=== PATIENT | female | born 1960 | race African-American/Black ===

== ENCOUNTER 2016-08-06 09:50 | Emergency (ER) | payer BC ==
--- NOTE | 2016-08-06 09:59 | PDOC ---
History of Present Illness - General Chief Complaint: Pain Stated Complaint: INTERMITTENT LEFT ARM PAIN Time Seen by Provider: 08/06/16 09:57 - History of Present Illness Initial Comments: 08/06/16 10:39 Chief complaint: Left arm pain History of present illness: Patient began having intermittent episodes of left arm pain last night. The pain began in her shoulder and radiated to the wrist, primarily the dorsal aspect of the arm. There was associated numbness and a" heavy" feeling. It was unrelated to exertion. She took aspirin last night when the pain began. Review of systems: There was no chest pain, shortness of breath, abdominal pain , nausea, vomiting, diaphoresis, lightheadedness or dizziness, visual or focal neurologic symptoms, or unsteadiness of gait. There were no symptoms related to the other extremities. Patient does usual house work but no vigorous work. She does admit that she has had pain in the left posterior neck muscles for about one week, with some mild neck stiffness. No melena, bloody stool, or hematemesis. Past medical history: High blood pressure, elevated cholesterol, both controlled on medication. GERD. Cholecystectomy. Denies prior coronary artery disease, angina, or chest pain Social history: No tobacco alcohol or nonprescription drugs. Fully active and without disability. No exercise intolerance. No heavy labor Family history: Father in his 60s of an [place]. No other cardiac or other diseases known in her immediate family Physical exam: Alert and oriented 3, well-developed well-nourished, no acute distress, cheerful and cooperative. No pain at present. Afebrile, vital signs normal PERRLA, fundi benign, ENT clear Neck supple without bruit mass or nodes. No point tenderness of the vertebral bodies. Mild tenderness over the left lateral neck muscles with stiffness upon movement, but no restriction of movement Lungs clear to P&A with full breath sounds throughout bilaterally CV S1 and S2 normal without murmur or gallop pulses full and symmetric no JVD or edema Abdomen soft nontender without mass or organomegaly Neurological C2 to 12 intact. Strength full and symmetric. No focal sensory or motor deficits. Gait stable and unimpaired. There is no demonstrable motor or sensory deficit in the left arm. Extremities no CCE Skin clear, no rash, adequate turgor and what mucous membranes Impression: Probable radicular pain left arm from mild cervical arthritis or cervical strain. Risk factors for coronary artery disease, but symptoms are not suggestive of cardiac involvement Plan: EKG and enzymes, CBC and chemistries, observation and further treatment depending on results. Past History - Past Medical History Allergies/Adverse Reactions: Allergies Allergy/AdvReac Type Severity Reaction Status Date / Time No Known Allergies Allergy Verified 08/06/16 09:55 Home Medications: Ambulatory Orders Lisinopril [Prinivil -] 10 mg PO DAILY 03/04/13 Aspirin [ASA -] 162 mg PO ONCE 08/06/16 Atorvastatin Ca [Lipitor] 10 mg PO HS 08/06/16 Cholecalciferol (Vitamin D3) [Vitamin D3 -] 1,000 unit PO DAILY 08/06/16 [place]-3/Dha/Epa/Fish Oil [Fish Oil 500 mg Softgel] 1 each PO DAILY 08/06/16 HTN: Yes Hypercholesterolemia: Yes - Surgical History Cholecystectomy: Yes - Psycho/Social/Smoking Cessation Hx Anxiety: No Suicidal Ideation: No Smoking Status: No Smoking History: Never smoked Number of Cigarettes Smoked Daily: 0 Hx Alcohol Use: No Substance Use Type: None ED Treatment Course - LABORATORY CBC & Chemistry Diagram: 08/06/16 10:15 08/06/16 10:15 Medical Decision Making - Medical Decision Making 08/06/16 10:14 EKG reviewed: Normal sinus rhythm 65/m. Normal axes and intervals. No ST-T wave changes. Normal EKG 08/06/16 11:33 Except for a mildly depressed white count, laboratories are without significant abnormalities. Cardiac enzymes are negative No recurrence of pain. Patient comfortable. Soft collar applied, heat, and anti- inflammatory medication recommended Discussed cardiac symptoms with the patient and her . To return to ER if further symptoms develop, otherwise follow-up with primary physician, orthopedist, and consider physical therapy if symptoms persist. Fully ambulatory and without significant pain or other discomfort at discharge to follow-up as directed *DC/Admit/Observation/Transfer Diagnosis at time of Disposition: Cervical radiculopathy - Discharge Dispostion Disposition: HOME Condition at time of disposition: Stable Admit: No - Referrals Referrals: Cely Wilson [Primary Care Provider] - 2 Days - Patient Instructions Printed Discharge Instructions: DI for Cervical Radiculopathy Additional Instructions: Your arm pain is most likely a result of an inadvertent neck strain or mild neck arthritis. There is no evidence in your EKG or laboratory work that this is heart related. However, if your symptoms worsen or other symptoms develop such as chest pain, shortness of breath, nausea, perspiring, dizziness, or lightheadedness, he should return to the hospital for further evaluation. Otherwise see your primary physician for further treatment. If this is a spine related problem and your symptoms persist, you should consider further evaluation by an orthopedist and possible physical therapy - Post Discharge Activity Work/School Note: Back to Work
[2016-08-06 10:06] VITALS: BP 169/86; PULSE 74; TEMP 98.1; BMI 31.2
[2016-08-06 10:12] LABS: URINE APPEARANCE Clear; URINE BILIRUBIN Negative (NEGATIVE); URINE GLUCOSE (UA) Negative (NEGATIVE); URINE KETONE Negative (NEGATIVE); URINE LEUK ESTERASE Trace (NEGATIVE); URINE NITRITE Negative (NEGATIVE); URINE PROTEIN Negative (NEGATIVE); URINE UROBILINOGEN 0.2 E.U/dl (0.2-1.0)
[2016-08-06 10:16] LABS: URINE COLOR YELLOW
[2016-08-06 10:32] LABS: BASOPHIL 1.3 % (0-2.0); EOSINOPHIL 3.1 % (0-4.5); MCH 22.8 pg (25.7-33.7); MCHC 32.5 g/dl (32.0-36.0); MEAN CELL VOLUME 70.2 fl (80-96); MEAN PLT VOLUME 9.1 fl (7.5-11.1); NEUTROPHILS 43.1 % (42.8-82.8); PLATELET COUNT 296 K/MM3 (134-434); RDW 13.9 % (11.6-15.6); WHITE BLOOD COUNT 3.3 K/mm3 (4.0-10.0)
[2016-08-06 10:42] LABS: ALK PHOS 81 U/L (32-92); ANION GAP 6 (8-16); BILIRUBIN,TOTAL 0.4 mg/dl (0.2-1.0); CALCIUM 9.4 mg/dl (8.4-10.2); CO2 30 mmol/L (22-28); CPK(DFH) 101 IU/L (26-140); CREATININE 0.9 mg/dl (0.6-1.3); GLUCOSE,RANDOM 79 mg/dl (74-106); SGOT/AST 21 U/L (10-42); SGPT/ALT 14 U/L (10-40); TOT PROT 7.6 g/dl (6.4-8.3)
[2016-08-06 10:43] LABS: URINE BLOOD 1+ (NEGATIVE)
[2016-08-06 10:55] LABS: TROPONIN I (DFP) < 0.03 ng/ml (0.03-0.50)
[2016-08-06 14:30] LABS: HYPOCHROMIA 1+; MICROCYTOSIS 1+
--- NOTE | 2016-08-06 18:12 | EKG ---
Test Reason : Blood Pressure : / mmHG Vent. Rate : 065 BPM Atrial Rate : 065 BPM P-R Int : 194 ms QRS Dur : 086 ms QT Int : 400 ms P-R-T Axes : 061 023 038 degrees QTc Int : 416 ms NORMAL SINUS RHYTHM NORMAL ECG NO PREVIOUS ECGS AVAILABLE Confirmed by KURTIS GILBERT MD ([id number]) on 08/06/2016 6:11:44 PM Referred By: DEVON GILMORE Confirmed By:KURTIS GILBERT MD
== END 2016-08-06 11:48 | disposition home or self-care (01) ==
LOC: FER 09:50
DX: M54.12 Radiculopathy, cervical region (principal); I10 Essential (primary) hypertension; E78.00 Pure hypercholesterolemia, unspecified
CPT/HCPCS: 36415; 80053; 81003; 82550; 84484; 85025; 87086; 93005; 99284-25

== ENCOUNTER 2017-07-14 02:52 | Emergency (ER) | payer BC ==
[2017-07-14 03:03] VITALS: BP 188/98; PULSE 66; TEMP 98.1; BMI 31.2
--- NOTE | 2017-07-14 03:22 | PDOC ---
History of Present Illness - General Chief Complaint: Palpitations Stated Complaint: CHEST POUNDING Time Seen by Provider: 07/14/17 03:17 History Source: Patient Exam Limitations: No Limitations - History of Present Illness Initial Comments: 07/14/17 03:24 This is a 56-year-old female with history of hypertension and high cholesterol comes in complaining of chest palpitations. Patient said that she is woken out of her sleep several times this evening with the palpitations. Patient denies any chest pain. Any nausea, paresis, radiation or any other associated symptoms. Patient has a family history of heart disease in the father who of heart disease otherwise patient said she's never been told that she has heart disease or problem with her heart. PAST MEDICAL HISTORY: no significant history PAST SURGICAL HISTORY: no significant history FAMILY HISTORY: no pertinant history SOCIAL HISTORY: Pt lives with family and is employed. MEDICATIONS: reviewed ALLERGIES: As per nursing notes Review of Systems General: No fevers or chills, no weakness, no weight loss HEENT: No change in vision. No sore throat,. No ear pain CardioVascular: No chest pain or shortness of breath, +palpitations Respiratory:No cough, or wheezing. Gastrointestinal: no nausea, vomitting, diarrhea or constipation, No rectal bleeding Genitourinary: No dysuria, hematuria, or frequency Musculoskeletal: No joint or muscle pain or swelling Neurologic: No headache, vertigo, dizziness or loss of consciousness Psychiatric: nor depression Skin: No rashes or easy bruising Endocrine: no increased thirst or abnormal weight change Allergic: no skin or latex allergy All other systems reviewed and normal Exam: General: Well-nourished well-developed individual, no acute distress HEENT: Throat: Normal, tonsils normal, no erythema or exudate Neck: Supple, no meningeal signs, no lymphadenopathy Eyes::Pupils equal reactive and round, extraocular motion intact Chest: Nontender to palpation Cardiac: S1-S2 normal, regular rate and rhythm, no murmurs rubs or gallops Respiratory: Lungs clear to auscultation bilateral Abdomen: Soft, nondistended, normal bowel sounds, nontender to palpation diffusely Extremities: Warm, dry, no cyanosis, clubbing, or edema Skin: No rashes Neuro: Alert and oriented x3, CN II - XII intact, nonfocal exam with normal strength, normal sensation, normal reflexes, normal gait, Psych: Normal mood and affect Medical decision making: This is a 56-year-old female with palpitations and some cardiac risk factors who comes in for evaluation. Will obtain workup including CBC, comp, cardiac profile Will obtain EKG We will reassess and follow up results of workup 04:00 Reassessment patient remains clinically unchanged Patient's heart score is 3 Assessment and plan: This is a 56-year-old female who comes in complaining of palpitations. Patient had a workup which normal including normal CBC and normal chemistries. Specifically troponin was nondetectable. Patient's blood pressure was somewhat elevated most likely secondary to her anxiety. Discussed with patient possibility of anxiety as the cause of her palpitations and patient said she has been under significant amount of stress. Patient remained hemodynamically stable here in the emergency room with no further palpitations. Recommended that patient follow up with her primary care doctor and a book or script editor as she does have several risk factors for heart disease. Past History - Past Medical History Allergies/Adverse Reactions: Allergies Allergy/AdvReac Type Severity Reaction Status Date / Time No Known Allergies Allergy Verified 08/06/16 09:55 Home Medications: Ambulatory Orders Lisinopril [Prinivil -] 10 mg PO DAILY 03/04/13 Aspirin [ASA -] 162 mg PO ONCE 08/06/16 Atorvastatin Ca [Lipitor] 10 mg PO HS 08/06/16 Cholecalciferol (Vitamin D3) [Vitamin D3 -] 1,000 unit PO DAILY 08/06/16 [place]-3/Dha/Epa/Fish Oil [Fish Oil 500 mg Softgel] 1 each PO DAILY 08/06/16 COPD: No HTN: Yes Hypercholesterolemia: Yes - Surgical History Cholecystectomy: Yes - Suicide/Smoking/Psychosocial Hx Smoking Status: No Smoking History: Never smoked Number of Cigarettes Smoked Daily: 0 Hx Alcohol Use: No Drug/Substance Use Hx: No Substance Use Type: None *Physical Exam - Vital Signs Last Vital Signs Temp Pulse Resp BP Pulse Ox 98.1 F 66 16 188/98 100 07/14/17 02:58 18 02:58 07/14/17 02:58 07/14/17 02:58 07/14/17 02:58 Heart Score/ECG Review - History History: Slightly suspicious - Electrocardiogram EKG: Normal - Age Age: 45-65 - Risk Factors Risk Factors Heart Score: Yes Hx Hypercholesterolemia, Yes Hx Hypertension, Yes Positive family hx of cardiac disease Based on the list above the patient has:: >/=3 risk factors or Hx atherosclerotic disease - Troponin Troponin: </= normal limit - Score Heart Score - Total: 3 ED Treatment Course - LABORATORY CBC & Chemistry Diagram: 07/14/17 03:30 07/14/17 03:30 - ADDITIONAL ORDERS Additional order review: 07/14/17 03:30 RBC 5.39 H MCV 69.1 L MCHC 32.5 RDW 14.7 MPV 9.1 Neutrophils % 30.8 L Lymphocytes % 54.3 H Monocytes % 11.7 H Eosinophils % 2.4 Basophils % 0.8 *DC/Admit/Observation/Transfer Diagnosis at time of Disposition: Palpitations - Discharge Dispostion Disposition: HOME Condition at time of disposition: Stable Admit: No - Referrals - Patient Instructions Additional Instructions: Return to the emergency department immediately with ANY new, persistent or worsening symptoms. Continue any medications as previously prescribed by your physician. You should follow up with your primary doctor as soon as possible regarding today's emergency department visit. . Please make sure your doctor reviews the results of your emergency evaluation. Thank you for coming to the Emergency Department today for your care. It was a pleasure to see you today. Please note that your evaluation is INCOMPLETE until you follow-up with your doctor. - Post Discharge Activity
[2017-07-14 04:19] LABS: BASO % 0.8 % (0-2.0); EOS % 2.4 % (0-4.5); HEMATOCRIT 37.3 % (32.4-45.2); HEMOGLOBIN 12.1 GM/dL (10.7-15.3); LYMPH % 54.3 % (8-40); MCH 22.4 pg (25.7-33.7); MCHC 32.5 g/dl (32.0-36.0); MEAN CELL VOLUME 69.1 fl (80-96); MEAN PLT VOLUME 9.1 fl (7.5-11.1); MONO % 11.7 % (3.8-10.2); NEUT % 30.8 % (42.8-82.8); PLATELET COUNT 246 K/MM3 (134-434); RBC 5.39 M/mm3 (3.60-5.2); RDW 14.7 % (11.6-15.6); WHITE BLOOD COUNT 4.1 K/mm3 (4.0-10.0)
[2017-07-14 05:34] LABS: ALBUMIN 3.5 g/dl (3.4-5.0); ALK PHOS 94 U/L (45-117); ANION GAP 6 (8-16); BILIRUBIN,TOTAL 0.4 mg/dL (0.2-1.0); BLOOD UREA NITROGEN 13 mg/dL (7-18); CALCIUM 8.9 mg/dL (8.5-10.1); CHLORIDE 106 mmol/L (98-107); CO2 31 mmol/L (21-32); CREATININE 0.8 mg/dL (0.55-1.02); GLUCOSE,RANDOM 85 mg/dL (74-106); SGPT/ALT 23 U/L (12-78); SODIUM 143 mmol/L (136-145); TOT PROT 7.8 g/dl (6.4-8.2)
[2017-07-14 05:36] LABS: POTASSIUM 4.7 mmol/L (3.5-5.1); SGOT/AST 27 U/L (15-37)
--- NOTE | 2017-07-18 16:58 | EKG ---
Test Reason : Blood Pressure : / mmHG Vent. Rate : 061 BPM Atrial Rate : 061 BPM P-R Int : 212 ms QRS Dur : 082 ms QT Int : 414 ms P-R-T Axes : 067 024 027 degrees QTc Int : 416 ms SINUS RHYTHM WITH 1ST DEGREE A-V BLOCK WHEN COMPARED WITH ECG OF 06-AUG-2016 10:11, NO SIGNIFICANT CHANGE WAS FOUND Confirmed by MD JOHNS MARJORY ([id number]) on 07/18/2017 4:57:52 PM Referred By: MD RUSH Confirmed By:MAUREEN JOHNS MD
== END 2017-07-14 05:42 | disposition home or self-care (01) ==
LOC: FER 02:52
DX: R00.2 Palpitations (principal); I10 Essential (primary) hypertension; E78.00 Pure hypercholesterolemia, unspecified
CPT/HCPCS: 36415; 80053; 82550; 84484; 85025; 93005; 99282-25

== ENCOUNTER 2023-07-09 17:17 | Emergency (ER) | payer BC ==
[2023-07-09 17:31] VITALS: RESP 18; BMI 31.6
[2023-07-09 20:18] LABS: BASO % 0.9 % (0-2.0); EOS % 2.4 % (0-4.5); HEMATOCRIT 39.4 % (32.4-45.2); HEMOGLOBIN 12.6 GM/dL (10.7-15.3); LYMPH % 47.6 % (8-40); MCH 22.5 pg (25.7-33.7); MCHC 31.8 g/dl (32.0-36.0); MEAN CELL VOLUME 70.7 fl (80-96); MEAN PLT VOLUME 8.7 fl (7.5-11.1); MONO % 9.8 % (3.8-10.2); NEUT % 39.3 % (42.8-82.8); PLATELET COUNT 293 10^3/uL (134-434); RBC 5.57 M/mm3 (3.60-5.2); RDW 14.6 % (11.6-15.6)
[2023-07-09 20:28] LABS: POTASSIUM 4.4 mmol/L (3.5-5.1)
[2023-07-09 20:30] LABS: BLOOD UREA NITROGEN 12.7 mg/dL (7-18); CALCIUM 9.8 mg/dL (8.5-10.1)
[2023-07-09 20:33] LABS: CREATININE 0.9 mg/dL (0.55-1.3)
[2023-07-09 20:35] LABS: BILIRUBIN,TOTAL 0.6 mg/dL (0.2-1)
[2023-07-09 21:53] VITALS: BP 140/67; PULSE 80; TEMP 98.1
== END 2023-07-09 21:53 | disposition home or self-care (01) ==
LOC: JER 17:17
DX: R07.89 Other chest pain (principal)
CPT/HCPCS: 36415; 71046-TC-FY; 80053; 84484; 85025; 93005; 93010; 99285-25